=== PATIENT | male | born 1975 | race Caucasian/White ===

== ENCOUNTER 2022-02-20 11:59 | Day surgery (SDC) | payer BC ==
[~2022-02-20] VITALS: Ht 182.9 cm; Wt 99.3 kg
--- NOTE | 2022-02-20 14:20 | NUR ---
02/20/22 1420 Perlita Jimenez late entry PT UPDATED REGARDING THE DELAY THROUGHOUT HIS STAY IN PRE OP. PT CASE CANCELLED PER DR CANAS DUE TO PREVIOUS CASE GOING LONG. PT RESCHEDULED AT [facility] ON FRIDAY.
== END 2022-02-20 13:30 | disposition home or self-care (01) ==
LOC: ORSCSDS 11:59
DX: S62.619A Displaced fracture of proximal phalanx of unspecified finger, initial encounter for closed fracture (principal); Z53.8 Procedure and treatment not carried out for other reasons
CPT/HCPCS: J0690; J7120

== ENCOUNTER 2022-02-22 12:47 | Day surgery (SDC) | payer BC ==
[~2022-02-22] VITALS: Ht 182.9 cm; Wt 98.7 kg
--- NOTE | 2022-02-22 14:05 | NUR ---
History, Chart, Medications and Allergies reviewed before start of procedure. Patient confirms NPO status and agrees with scheduled surgery. Patient States Post-Procedure ride home has been arranged with patient's .
--- NOTE | 2022-02-22 14:07 | NUR ---
DR YEAGER INSTRUCTED PATIENT TO LEAVE CONTACT LENSES IN. PATIENT STATES HE SLEEPS IN THEM WITHOUT PROBLEMS. PATIENT REMOVED HIS OWN SPLINT. TRUE ELEVATED ON PILLOW.
--- NOTE | 2022-02-22 15:57 | NUR ---
PT HAS CAP REFILL WNL WIGGLES FINGERS SPLINT BOOKER WRAP IN PLACE
--- NOTE | 2022-02-22 16:43 | NUR ---
Patient up to Ambulate independently. Gait steady. Discharge instructions reviewed with patient. Patient verbalizes understanding. Copy given to patient to take home, WELL . Patient States Post-Procedure ride home has been arranged. Discharged via wheelchair to private car for ride home.
== END 2022-02-22 16:43 | disposition home or self-care (01) ==
LOC: ORSCMMR 12:47 → ORD 14:15 → ORSCMMR 16:43
PROVIDERS: Orthopaedic Surgery
PROC: 0PST34Z Reposition Right Finger Phalanx with Internal Fixation Device, Percutaneous Approach (ICD-10-PCS; principal; 2022-02-22 14:15)
DX: S62.614A Displaced fracture of proximal phalanx of right ring finger, initial encounter for closed fracture (principal)
CPT/HCPCS: C1769; J0171; J0690; J1100; J1885; J2250; J2405; J2704; J3010; J7120

== ENCOUNTER → 2023-02-06 | Outpatient (CLI) | payer BC ==
[2023-02-06 10:02] LABS: BASOPHILS ABSOLUTE AUTO 0.04 K/mm3 (0.00-0.23); BASOPHILS PERCENT AUTO 1 % (0-2); EOSINOPHILS PERCENT AUTO 2 % (0-6); Hematocrit 43.2 % (37.0-53.0); Hemoglobin 14.8 g/dL (13.5-17.5); IMMATURE GRAN ABSOLUTE AUTO 0.02 K/mm3 (0.00-0.10); IMMATURE GRAN PERCENT AUTO 0 % (0-1); LYMPHOCYTES ABSOLUTE AUTO 1.96 K/mm3 (0.84-5.20); LYMPHOCYTES PERCENT AUTO 36 % (21-46); MONOCYTES ABSOLUTE AUTO 0.48 K/mm3 (0.16-1.47); MONOCYTES PERCENT AUTO 9 % (4-13); Mean Corpuscular HGB 29.4 pg (26.0-34.0); Mean Corpuscular HGB Conc 34.3 g/dL (31.5-36.5); Mean Corpuscular Volume 86 fL (80-100); Mean Platelet Volume 11.3 fL (9.1-12.4); NEUTROPHILS ABSOLUTE AUTO 2.78 K/mm3 (1.96-9.15); NEUTROPHILS PERCENT AUTO 52 % (41-73); Platelet Count 255 K/mm3 (150-400); RDW Coefficient Variation 12.5 % (11.7-14.2); RDW Standard Deviation 38.6 fL (35.1-46.3); Red Blood Cell Count 5.03 M/mm3 (4.30-5.90); White Blood Cell Count 5.38 K/mm3 (4.00-11.30)
[2023-02-06 10:20] LABS: Albumin, Blood 4.6 g/dL (3.4-5.0); Albumin/Globulin Ratio 1.2 (0.8-1.8); Bilirubin, Total 0.4 mg/dL (0.1-1.0); Bun/Creatinine Ratio 14.3 (12.0-20.0); Calcium, Blood 9.7 mg/dL (8.5-10.1); Creatinine, Blood 0.98 mg/dL (0.60-1.20); Potassium, Blood 3.6 mmol/L (3.5-5.5); Thyroid Stimulating Hormone 3.913 uIU/mL (0.360-4.800); Total Protein, Blood 8.6 g/dL (6.4-8.2)
== END | disposition home or self-care (01) ==
LOC: LAB SHORT 09:50 → LAB 09:50
PROVIDERS: Emergency Medicine
DX: R07.9 Chest pain, unspecified (principal)
CPT/HCPCS: 80053; 83690; 83880; 84439; 84443; 84484; 85025